=== PATIENT | female | born 1955 | race Two or more races ===

== ENCOUNTER 2020-01-14 07:12 | Outpatient (CLI) | payer OTHER ==
[~2020-01-14 07:12] MED LIST: AMBIEN5 MG PO; KLONOPIN0.5 MG/TAB PO; NEURONTIN300 MG PO; NORFLEX100 MG PO; RELAFEN500 MG PO; SYNTHROID75 MCG PO; WELLBUTRIN100 MG PO
== END 2020-01-14 07:24 | disposition home or self-care (01) ==
LOC: MAMO-SONO 07:12 → EDSEX 07:12 → MAMO-SONO 07:24
DX: Z12.31 Encounter for screening mammogram for malignant neoplasm of breast (principal); R10.84 Generalized abdominal pain

== ENCOUNTER 2020-06-27 15:36 | Outpatient (CLI) | payer OTHER | END 2020-06-27 15:37 | disposition home or self-care (01) | LOC: PPH VACUNA 15:36 | PROVIDERS: ATTEND Emergency Medicine Pediatric Emergency Medicine | DX: Z23 Encounter for immunization (principal) ==

== ENCOUNTER → 2020-08-10 | Outpatient (CLI) | payer OTHER | END | disposition home or self-care (01) | LOC: RAD 15:09 | DX: M17.0 Bilateral primary osteoarthritis of knee (principal) ==

== ENCOUNTER 2021-02-07 09:17 | Outpatient (CLI) | payer OTHER | END 2021-02-07 09:18 | disposition home or self-care (01) | LOC: RAD 09:17 → LAB 09:17 | PROVIDERS: ATTEND Ophthalmology | DX: I10 Essential (primary) hypertension (principal); E11.39 Type 2 diabetes mellitus with other diabetic ophthalmic complication; I15.8 Other secondary hypertension; D68.32 Hemorrhagic disorder due to extrinsic circulating anticoagulants; D69.8 Other specified hemorrhagic conditions ==

== ENCOUNTER 2021-02-10 13:08 | Outpatient (CLI) | payer OTHER | END 2021-02-10 13:09 | disposition home or self-care (01) | LOC: NUCLEAR 13:08 | PROVIDERS: ATTEND Internal Medicine Rheumatology | DX: M81.0 Age-related osteoporosis without current pathological fracture (principal) ==

== ENCOUNTER 2021-03-22 12:20 | Outpatient (CLI) | payer OTHER | END 2021-03-22 12:29 | disposition home or self-care (01) | LOC: RAD 12:20 | DX: M17.0 Bilateral primary osteoarthritis of knee (principal) ==